=== PATIENT | female | born 1965 | race Two or more races ===

== ENCOUNTER 2022-08-31 09:50 | Day surgery (SDC) | payer OTHER ==
[2022-08-23 14:21] VITALS: BMI 25.4
[2022-08-31 12:45] VITALS: TEMP 97.6
[2022-08-31 12:47] VITALS: BP 114/76; PULSE 84; RESP 20
== END 2022-08-31 13:00 | disposition home or self-care (01) ==
LOC: FASU-ENDO 09:50
PROVIDERS: ATTEND Internal Medicine Gastroenterology
PROC: 0DB78ZX Excision of Stomach, Pylorus, Via Natural or Artificial Opening Endoscopic, Diagnostic (ICD-10-PCS; 2022-08-31)
PROC: 0DB68ZX Excision of Stomach, Via Natural or Artificial Opening Endoscopic, Diagnostic (ICD-10-PCS; 2022-08-31)
PROC: 0DB98ZX Excision of Duodenum, Via Natural or Artificial Opening Endoscopic, Diagnostic (ICD-10-PCS; principal; 2022-08-31 12:11)
DX: Z01.818 Encounter for other preprocedural examination (principal); K29.50 Unspecified chronic gastritis without bleeding; K21.00 Gastro-esophageal reflux disease with esophagitis, without bleeding; R10.13 Epigastric pain
CPT/HCPCS: 88305-TC; 88342-TC

== ENCOUNTER 2022-11-09 09:44 | Day surgery (SDC) | payer OTHER ==
[2022-11-03 15:44] VITALS: BMI 25.4
[2022-11-09] MEDS ORDERED: PROPOFOL 100 ML ONE (11:39)
[2022-11-09 12:08] VITALS: TEMP 98.2
[2022-11-09 12:22] VITALS: BP 103/63; PULSE 69; RESP 19
== END 2022-11-09 12:25 | disposition home or self-care (01) ==
LOC: FASU-ENDO 09:44
PROVIDERS: ATTEND Internal Medicine Gastroenterology
PROC: 0DJD8ZZ Inspection of Lower Intestinal Tract, Via Natural or Artificial Opening Endoscopic (ICD-10-PCS; principal; 2022-11-09 11:38)
DX: Z12.11 Encounter for screening for malignant neoplasm of colon (principal); K64.0 First degree hemorrhoids; K57.30 Diverticulosis of large intestine without perforation or abscess without bleeding